=== PATIENT | male | born 1985 | race Caucasian/White ===

== ENCOUNTER → 2022-02-09 16:48 | Outpatient (CLI) | payer BC, SELFPAY ==
[2022-02-09 17:08] LABS: Coronavirus 19, PCR Not Detected (NotDetected); Influenza B, PCR Not Detected (NotDetected)
[2022-02-09 18:53] LABS: Influenza A, PCR Detected (NotDetected)
== END ==
PROVIDERS: PCP Family Medicine; Visit Provider Physician Assistant
DX: Z20.822 Contact with and (suspected) exposure to COVID-19 (principal); J09.X2 Influenza due to identified novel influenza A virus with other respiratory manifestations
CPT/HCPCS: C9803; U0003; U0005